=== PATIENT | male | born 1970 | race Two or more races ===

== ENCOUNTER → 2018-01-19 | Emergency (ER) | payer OTHER ==
[~2018-01-19] VITALS: Ht 177.8 cm; Wt 77.1 kg
[~2018-01-19] MED LIST: NEURONTIN600 MG; NEURONTIN800 MG PO; PERCOCET 2.5-31 EACH; PERCOCET 5-3251 EACH PO
== END | disposition home or self-care (01) ==
LOC: ER 01:10
DX: G62.9 Polyneuropathy, unspecified (principal); R53.81 Other malaise

== ENCOUNTER 2019-05-21 09:51 | Emergency (ER) | payer OTHER ==
[~2019-05-21] VITALS: Ht 177.8 cm; Wt 72.6 kg
== END 2019-05-21 12:55 | disposition home or self-care (01) ==
LOC: ER 09:51
DX: M54.12 Radiculopathy, cervical region (principal)

== ENCOUNTER 2019-06-05 04:13 | Emergency (ER) | payer OTHER ==
[~2019-06-05] VITALS: Ht 177.8 cm; Wt 77.1 kg
[2019-06-05] MEDS ORDERED: PERCOCET 5-3251 EACH (04:23)
[2019-06-05] MEDS ORDERED: PERCOCET 5-3251 EACH PO (04:58)
== END 2019-06-05 05:08 | disposition home or self-care (01) ==
LOC: ER 04:13
DX: M79.7 Fibromyalgia (principal)

== ENCOUNTER → 2019-07-05 | Emergency (ER) | payer OTHER ==
[~2019-07-05] VITALS: Ht 177.8 cm; Wt 75.7 kg
[~2019-07-05] MED LIST changes: +INDERAL LA80 MG; +PERCOCET 5-3251 EACH
== END | disposition left against medical advice (07) ==
LOC: ER 05:18
DX: Z53.20 Procedure and treatment not carried out because of patient's decision for unspecified reasons (principal)

== ENCOUNTER 2019-08-08 18:52 | Emergency (ER) | payer OTHER ==
[~2019-08-08] VITALS: Ht 177.8 cm; Wt 72.6 kg
[2019-08-09] MEDS ORDERED: ULTRACET PO (05:04)
[2019-08-09] MEDS ORDERED: TUSNEL LIQUID178 ML PO (05:04)
== END 2019-08-08 22:22 | disposition home or self-care (01) ==
LOC: ER 18:52
DX: J06.9 Acute upper respiratory infection, unspecified (principal)

== ENCOUNTER 2019-09-07 15:17 | Emergency (ER) | payer OTHER ==
[~2019-09-07] VITALS: Ht 177.8 cm; Wt 76.7 kg
[~2019-09-07 15:17] MED LIST changes: +TUSNEL LIQUID178 ML PO; +ULTRACET PO
[2019-09-07] MEDS ORDERED: PERCOCET 5-3251 EACH PO (17:36)
== END 2019-09-07 17:45 | disposition home or self-care (01) ==
LOC: ER 15:17
DX: R51 Headache (principal)

== ENCOUNTER 2019-12-07 02:56 | Emergency (ER) | payer OTHER ==
[~2019-12-07] VITALS: Ht 177.8 cm; Wt 73.5 kg
[2019-12-07] MEDS ORDERED: PERCOCET 5-3251 EACH PO (04:02)
== END 2019-12-07 04:47 | disposition home or self-care (01) ==
LOC: ER 02:56
DX: G43.009 Migraine without aura, not intractable, without status migrainosus (principal)

== ENCOUNTER 2020-01-03 16:51 | Emergency (ER) | payer OTHER ==
[~2020-01-03] VITALS: Ht 177.8 cm; Wt 73.5 kg
== END 2020-01-03 18:03 | disposition home or self-care (01) ==
LOC: ER 16:51
DX: M54.2 Cervicalgia (principal)

== ENCOUNTER 2020-01-23 17:24 | Emergency (ER) | payer OTHER ==
[~2020-01-23] VITALS: Ht 152.4 cm; Wt 73.9 kg
== END 2020-01-23 20:23 | disposition home or self-care (01) ==
LOC: ER 17:24
DX: S61.011A Laceration without foreign body of right thumb without damage to nail, initial encounter (principal); W45.8XXA Other foreign body or object entering through skin, initial encounter; Y93.89 Activity, other specified; Y92.89 Other specified places as the place of occurrence of the external cause; Y99.8 Other external cause status

== ENCOUNTER 2020-02-06 12:53 | Emergency (ER) | payer OTHER ==
[~2020-02-06] VITALS: Ht 177.8 cm; Wt 72.6 kg
== END 2020-02-06 15:31 | disposition home or self-care (01) ==
LOC: ER 12:53
DX: Z48.02 Encounter for removal of sutures (principal)

== ENCOUNTER 2020-02-15 17:26 | Emergency (ER) | payer OTHER ==
[~2020-02-15] VITALS: Ht 170.2 cm; Wt 61.2 kg
[2020-02-15] MEDS ORDERED: DOLOGEN CAPLET1 EACH PO (18:22)
[2020-02-15] MEDS ORDERED: NORFLEX100MG PO (18:22)
== END 2020-02-15 21:00 | disposition home or self-care (01) ==
LOC: ER 17:26
DX: S22.42XA Multiple fractures of ribs, left side, initial encounter for closed fracture (principal); R07.81 Pleurodynia; S20.212S Contusion of left front wall of thorax, sequela; W18.09XS Striking against other object with subsequent fall, sequela

== ENCOUNTER 2020-02-21 14:58 | Emergency (ER) | payer OTHER ==
[~2020-02-21] VITALS: Ht 177.8 cm; Wt 68.0 kg
[~2020-02-21 14:58] MED LIST changes: +DOLOGEN CAPLET1 EACH PO; +NORFLEX100MG PO
== END 2020-02-21 20:47 | disposition home or self-care (01) ==
LOC: ER 14:58
DX: B34.9 Viral infection, unspecified (principal); Z03.818 Encounter for observation for suspected exposure to other biological agents ruled out; R07.0 Pain in throat; R05 Cough

== ENCOUNTER → 2020-03-21 | Emergency (ER) | payer OTHER ==
[~2020-03-21] VITALS: Ht 177.8 cm; Wt 68.5 kg
== END | disposition left against medical advice (07) ==
LOC: ER 22:40
DX: R10.12 Left upper quadrant pain (principal); G50.0 Trigeminal neuralgia

== ENCOUNTER 2021-11-28 21:28 | Emergency (ER) | payer OTHER ==
[~2021-11-28] VITALS: Ht 177.8 cm; Wt 88.0 kg
[2021-11-29] MEDS ORDERED: CIPRO500 MG PO (04:06)
[2021-11-29] MEDS ORDERED: ULTRAM50 MG PO (04:06)
== END 2021-11-29 04:13 ==
LOC: ER 21:28
DX: N39.0 Urinary tract infection, site not specified (principal); Z88.6 Allergy status to analgesic agent; Z88.0 Allergy status to penicillin; Z88.2 Allergy status to sulfonamides

== ENCOUNTER 2022-02-18 18:04 | Emergency (ER) | payer OTHER ==
[~2022-02-18] VITALS: Ht 177.8 cm; Wt 82.6 kg
[~2022-02-18 18:04] MED LIST changes: +CIPRO500 MG PO; +ULTRAM50 MG PO
== END 2022-02-18 22:27 | disposition home or self-care (01) ==
LOC: ER 18:04
DX: L97.518 Non-pressure chronic ulcer of other part of right foot with other specified severity (principal); L08.89 Other specified local infections of the skin and subcutaneous tissue; G57.83 Other specified mononeuropathies of bilateral lower limbs; S90.811A Abrasion, right foot, initial encounter; E16.2 Hypoglycemia, unspecified; Z88.0 Allergy status to penicillin; Z88.2 Allergy status to sulfonamides; Z88.6 Allergy status to analgesic agent